=== PATIENT | male | born 1970 | race Caucasian/White ===

== ENCOUNTER 2023-07-07 12:24 | Outpatient (CLI) | payer BC, MEDICARE, OTHER, SELFPAY ==
[2023-07-07 14:15] LABS: Anion Gap 13.5 (5-19); Blood Urea Nitrogen 18 mg/dL (6-20); Calcium 8.7 mg/dL (8.5-10.5); Carbon Dioxide 25 mmol/L (22-29); Chloride 104 mmol/L (98-107); Glomerular Filtration Rate 77.6 mL/min (90-130); Glucose 123 mg/dL (65-115); Osmolality Calculated 289 mOsm/kg (285-295); Potassium 4.5 mmol/L (3.5-5.1); Sodium 138 mmol/L (136-145)
== END 2023-07-07 12:25 | disposition home or self-care (01) ==
PROVIDERS: Visit Provider Nurse Practitioner Family
DX: I50.22 Chronic systolic (congestive) heart failure (principal)
CPT/HCPCS: 36415; 80048

== ENCOUNTER 2023-08-09 10:50 | Outpatient (CLI) | payer BC, MEDICARE, OTHER, SELFPAY ==
[2023-08-09 12:05] LABS: Blood Urea Nitrogen 11 mg/dL (6-20); Calcium 8.7 mg/dL (8.5-10.5); Carbon Dioxide 23 mmol/L (22-29); Chloride 102 mmol/L (98-107); Glomerular Filtration Rate 87.6 mL/min (90-130); Glucose 106 mg/dL (65-115); Osmolality Calculated 282 mOsm/kg (285-295); Sodium 136 mmol/L (136-145)
[2023-08-09 12:09] LABS: Anion Gap 15.3 (5-19); Potassium 4.3 mmol/L (3.5-5.1)
== END 2023-08-09 10:51 | disposition home or self-care (01) ==
LOC: LAB 10:58
PROVIDERS: Visit Provider Nurse Practitioner Family
DX: E78.2 Mixed hyperlipidemia (principal)
CPT/HCPCS: 36415; 80048

== ENCOUNTER 2024-01-19 12:34 | Outpatient (CLI) | payer BC, MEDICARE, OTHER, SELFPAY ==
[2024-01-19 13:18] LABS: INR 1.99 (0.8-1.2)
== END 2024-01-19 12:35 | disposition home or self-care (01) ==
LOC: LAB 12:37
PROVIDERS: Visit Provider Nurse Practitioner Family
DX: Z95.811 Presence of heart assist device (principal)
CPT/HCPCS: 36415; 85610

== ENCOUNTER 2024-01-29 12:05 | Outpatient (CLI) | payer BC, MEDICARE, OTHER, SELFPAY ==
[2024-01-29 13:06] LABS: INR 1.64 (0.8-1.2)
== END 2024-01-29 12:06 | disposition home or self-care (01) ==
LOC: LAB 12:09
PROVIDERS: PCP Nurse Practitioner Family; Visit Provider Nurse Practitioner Family
DX: Z95.811 Presence of heart assist device (principal); Z79.01 Long term (current) use of anticoagulants
CPT/HCPCS: 36415; 85610

== ENCOUNTER 2024-02-16 13:18 | Outpatient (RCR) | payer BC, MEDICARE, OTHER, SELFPAY | END 2024-03-14 23:59 | disposition home or self-care (01) | LOC: CR 13:18 | PROVIDERS: PCP Nurse Practitioner Family; Referring Provider Nurse Practitioner Family; Visit Provider Nurse Practitioner Family | DX: I50.9 Heart failure, unspecified (principal); Z95.811 Presence of heart assist device | CPT/HCPCS: 93798 ==

== ENCOUNTER 2024-03-04 15:35 | Outpatient (CLI) | payer MEDICARE, BC, OTHER, SELFPAY ==
[2024-03-04 16:15] LABS: INR 1.96 (0.8-1.2)
== END 2024-03-04 15:36 | disposition home or self-care (01) ==
LOC: LAB 15:41
PROVIDERS: PCP Nurse Practitioner Family; Visit Provider Nurse Practitioner Family
DX: Z79.01 Long term (current) use of anticoagulants (principal); Z95.811 Presence of heart assist device
CPT/HCPCS: 36415; 85610

== ENCOUNTER 2024-03-15 12:08 | Outpatient (RCR) | payer BC, MEDICARE, OTHER, SELFPAY | END 2024-04-13 23:59 | disposition home or self-care (01) | LOC: CR 12:08 | PROVIDERS: PCP Nurse Practitioner Family; Referring Provider Nurse Practitioner Family; Visit Provider Nurse Practitioner Family | DX: I50.9 Heart failure, unspecified (principal); Z95.811 Presence of heart assist device | CPT/HCPCS: 93798 ==

== ENCOUNTER → 2024-03-21 13:39 | Outpatient (BNVA) | payer BC, MEDICARE, OTHER, SELFPAY | PROVIDERS: PCP Nurse Practitioner Family | DX: R39.9 Unspecified symptoms and signs involving the genitourinary system (principal) | CPT/HCPCS: 81000 ==

== ENCOUNTER → 2024-03-29 11:04 | Outpatient (BNVA) | payer BC, MEDICARE, OTHER, SELFPAY | PROVIDERS: PCP Nurse Practitioner Family | DX: S89.90XA Unspecified injury of unspecified lower leg, initial encounter (principal); M25.461 Effusion, right knee; S88.119A Complete traumatic amputation at level between knee and ankle, unspecified lower leg, initial encounter; X58.XXXA Exposure to other specified factors, initial encounter | CPT/HCPCS: 73562 ==

== ENCOUNTER → 2024-04-06 18:50 | Outpatient (BNVA) | payer BC, MEDICARE, OTHER, SELFPAY | PROVIDERS: PCP Nurse Practitioner Family; Visit Provider Emergency Medicine | DX: R39.9 Unspecified symptoms and signs involving the genitourinary system (principal) | CPT/HCPCS: 81000; 87086 ==

== ENCOUNTER → 2024-04-22 14:33 | Outpatient (BNVA) | payer BC, MEDICARE, SELFPAY | PROVIDERS: PCP Nurse Practitioner Family; Visit Provider Specialist | DX: M25.561 Pain in right knee; M17.11 Unilateral primary osteoarthritis, right knee; Z95.811 Presence of heart assist device | CPT/HCPCS: 73562 ==

== ENCOUNTER 2024-07-12 12:03 | Outpatient (CLI) | payer BC, MEDICARE, SELFPAY ==
[2024-07-12 12:59] LABS: INR 1.95 (0.8-1.2)
== END 2024-07-12 12:04 | disposition home or self-care (01) ==
LOC: LAB 12:04
PROVIDERS: PCP Nurse Practitioner Family; Visit Provider Nurse Practitioner Family
DX: Z79.01 Long term (current) use of anticoagulants (principal)
CPT/HCPCS: 36415; 85610